=== PATIENT | male | born 1960 | race Caucasian/White ===

== ENCOUNTER 2018-02-10 06:50 | Emergency (ER) | payer OTHER ==
[~2018-02-10] VITALS: Ht 177.8 cm; Wt 100.0 kg
[~2018-02-10 06:50] MED LIST: ASPI1TAB7 PO; ATOR40TA PO; METO50TA PO; PARO25CR PO; PLAV75TA PO; SERO50TA4 PO; TRAM50TA PO
[2018-02-10 06:56] VITALS: BP 149/78; PULSE 89; RESP 24; TEMP 97.6; O2SAT 99
[2018-02-10] MEDS ORDERED: HYDR-4107 PO (07:07)
[2018-02-10] MEDS ORDERED: ASPI-516 CHEW (07:07)
[2018-02-10] MEDS ORDERED: ATOR20TA15 PO (07:07)
[2018-02-10] MEDS ORDERED: ATOR40TA16 PO (07:07)
--- NOTE | 2018-02-10 07:19 | PD ---
HPI Chief Complaint: Respiratory Symptoms Time Seen by Provider: 07:05 Travel History International Travel<30 days: No Contact w/Intl Traveler<30days: No Traveled to known affect area: No History of Present Illness HPI This patient woke up this morning and developed a constellation of symptoms. He was lightheaded and nauseous and short of breath. He became anxious and panicky. He is not sure which came first. He has history of anxiety as well as COPD and CAD. He did not have any chest pain or pressure or tightness or heaviness. Denies fever or headache or syncope. Symptom severity was moderate. He called paramedics when he became real anxious. At this point his breathing is improved. No vomiting or diarrhea. Symptoms have no alleviating factors. Symptoms have no exacerbating factors. Duration was 20 minutes. PFSH Past Medical History Arthritis: Yes Asthma: No Blood Disorders: No Heart Rhythm Problems: No Cancer: No Cardiovascular Problems: Yes High Cholesterol: Yes (takes medication) Chest Pain: Yes Congestive Heart Failure: No COPD: Yes Cerebrovascular Accident: No Diabetes: No Endocrine: No Gastrointestinal Disorders: No GERD: No Glaucoma: No Genitourinary: No Headaches: No Hepatitis: No Hiatal Hernia: No Hypertension: Yes Immune Disorder: No Implanted Vascular Access Dvce: No Kidney Stones: Yes Musculoskeletal: Yes Neurologic: No Psychiatric: No Reproductive: No Respiratory: Yes Integumentary: No Migraines: No Myocardial Infarction: Yes Renal Failure: No Seizures: No Sleep Apnea: No Thyroid Disease: No Ulcer: No Past Surgical History Abdominal Surgery: No Cardiac Surgery: No Coronary Artery Bypass Graft: Yes (3 vessel) Ear Surgery: No Endocrine Surgery: No Eye Surgery: No Genitourinary Surgery: No Gynecologic Surgery: No Neurologic Surgery: No Oral Surgery: No Pacemaker: No Thoracic Surgery: No Other Surgery: Yes (cabg x 3) Social History Alcohol Use: No Tobacco Use: Yes (/2 ppd) Substance Use: No Allergies-Medications (Allergen,Severity, Reaction): Coded Allergies: No Known Allergies (Unverified , 01/25/16) Reported Meds & Prescriptions Reported Meds & Active Scripts Active Reported Hydrocodone-Acetaminophen 5-300 Mg Tab 1 Tab PO Q6H PRN Aspirin 81 Mg Chew 81 Mg CHEW DAILY Atorvastatin (Atorvastatin Calcium) 40 Mg Tab 40 Mg PO HS Review of Systems General / Constitutional: No: Fever Eyes: No: Visual changes HENT: Positive: Lightheadedness, No: Headaches Cardiovascular: No: Chest Pain or Discomfort Respiratory: Positive: Shortness of Breath Gastrointestinal: Positive: Nausea, No: Abdominal Pain Genitourinary: No: Dysuria Musculoskeletal: No: Pain Skin: No Rash Neurologic: No: Weakness Psychiatric: Positive: Anxiety, No: Depression Endocrine: No: Polydipsia Hematologic/Lymphatic: No: Easy Bruising Physical Exam Narrative GENERAL: Well-nourished, well-developed patient in no apparent distress. SKIN: Focused skin assessment reveals no rash and nodules. Skin is Warm and dry. HEAD: Atraumatic. Normocephalic. EYES: Pupils equal and round. No scleral icterus. No injection or drainage. ENT: No nasal bleeding or discharge. Mucous membranes pink and moist. NECK: Trachea midline. No JVD. CARDIOVASCULAR: Regular rate and rhythm. No murmur appreciated. RESPIRATORY: No accessory muscle use. Clear to auscultation. Breath sounds equal bilaterally. GASTROINTESTINAL: Abdomen soft, non-tender, nondistended. Hepatic and splenic margins not palpable. MUSCULOSKELETAL: No obvious deformities. No clubbing. No cyanosis. No edema. NEUROLOGICAL: Awake and alert. No obvious cranial nerve deficits. Motor grossly within normal limits. Normal speech. PSYCHIATRIC: Anxious mood and affect; insight and judgment normal. Data Data Last Documented VS Vital Signs Date Time Temp Pulse Resp B/P (MAP) Pulse Ox O2 Delivery O2 Flow Rate FiO2 02/10/18 06:56 97.6 89 24 149/78 (101) 99 Orders Orders Electrocardiogram (02/10/18 ) Chest, Single Ap (02/10/18 ) Iv Access Insert/Monitor (02/10/18 07:14) Complete Blood Count With Diff (02/10/18 07:14) Basic Metabolic Panel (Bmp) (02/10/18 07:14) Ckmb (Isoenzyme) Profile (02/10/18 07:14) Troponin I (02/10/18 07:14) Street [employer] / Telemetry KANDIS.Q8H (02/10/18 07:14) Labs Laboratory Tests Test 02/10/18 07:16 White Blood Count 11.5 TH/MM3 Red Blood Count 4.86 MIL/MM3 Hemoglobin 14.7 GM/DL Hematocrit 44.5 % Mean Corpuscular Volume 91.5 FL Mean Corpuscular Hemoglobin 30.2 PG Mean Corpuscular Hemoglobin Concent 33.0 % Red Cell Distribution Width 13.3 % Platelet Count 282 TH/MM3 Mean Platelet Volume 8.1 FL Neutrophils (%) (Auto) 72.5 % Lymphocytes (%) (Auto) 18.5 % Monocytes (%) (Auto) 7.2 % Eosinophils (%) (Auto) 1.2 % Basophils (%) (Auto) 0.6 % Neutrophils # (Auto) 8.4 TH/MM3 Lymphocytes # (Auto) 2.1 TH/MM3 Monocytes # (Auto) 0.8 TH/MM3 Eosinophils # (Auto) 0.1 TH/MM3 Basophils # (Auto) 0.1 TH/MM3 CBC Comment DIFF FINAL Differential Comment Blood Urea Nitrogen 18 MG/DL Creatinine 1.20 MG/DL Random Glucose 158 MG/DL Calcium Level 8.6 MG/DL Sodium Level 137 MEQ/L Potassium Level 3.6 MEQ/L Chloride Level 106 MEQ/L Carbon Dioxide Level 23.4 MEQ/L Anion Gap 8 MEQ/L Estimat Glomerular Filtration Rate 62 ML/MIN Total Creatine Kinase 84 U/L Troponin I LESS THAN 0.02 NG/ML MDM Medical Decision Making Medical Screen Exam Complete: Yes Emergency Medical Condition: Yes Medical Record Reviewed: Yes Differential Diagnosis COPD exacerbation, anxiety, angina Narrative Course I have reviewed the patient's electronic medical record. Patient was here in 2016 last. Has history of bypass grafting surgery Patient's vital signs at this time are normal. May have been anxiety attack or COPD. Less likely seems ACS. He did not have any chest pain. I have ordered lab studies as well as chest x-ray and EKG to evaluate He notes that he is significantly much better than when he woke up. Extended cardiac monitoring shows sinus rhythm without ectopy CBC and metabolic studies are normal Cardiac enzymes are normal Chest x-ray is clear EKG shows no ST elevation, sinus rhythm On recheck he is feeling better and doing well. Vitals are normal. I think he had an anxiety attack but it has resolved. No evidence of ACS Diagnosis Primary Impression: Anxiety attack Additional Impressions: Shortness of breath Coronary artery disease Qualified Codes: I25.799 - Atherosclerosis of other coronary artery bypass graft(s) with unspecified angina pectoris Additional Instructions: The patient was advised to follow up with their physician and return if they worsen. Med/Other Pt SpecificInfo: Other Disposition: DISCHARGE HOME Condition: Stable Robert Fontaine MD Feb 10, 2018 07:19
[2018-02-10 07:25] LABS: AUTOMATED NEUTROPHIL # 8.4 TH/MM3 (1.8-7.7); BASOPHIL # 0.1 TH/MM3 (0-0.2); BASOPHIL % 0.6 % (0.0-2.0); EOSINOPHIL # 0.1 TH/MM3 (0-0.4); EOSINOPHIL % 1.2 % (0.0-4.0); HEMATOCRIT 44.5 % (39.0-51.0); HEMOGLOBIN 14.7 GM/DL (13.0-17.0); LYMPH % 18.5 % (9.0-44.0); LYMPHOCYTE # 2.1 TH/MM3 (1.0-4.8); MEAN CELL VOLUME 91.5 FL (80.0-100.0); MEAN CORPUSCULAR HEMOGLOBIN 30.2 PG (27.0-34.0); MEAN PLATELET VOLUME 8.1 FL (7.0-11.0); MONO % 7.2 % (0.0-8.0); MONOCYTE # 0.8 TH/MM3 (0-0.9); NEUT % 72.5 % (16.0-70.0); PLATELET COUNT 282 TH/MM3 (150-450); RED BLOOD COUNT 4.86 MIL/MM3 (4.50-5.90); RED CELL DISTRIBUTION WIDTH 13.3 % (11.6-17.2); WHITE BLOOD COUNT 11.5 TH/MM3 (4.0-11.0)
--- NOTE | 2018-02-10 07:27 | RADRPT ---
EXAM DATE/TIME: 02/10/2018 07:12 [facility] COMPARISON: CHEST SINGLE AP, January 25, 2016, 18:16. INDICATIONS : Short of breath MEDICAL HISTORY : Hypertension. Myocardial infarction. Chronic obstructive pulmonary disease, CAD. SURGICAL HISTORY : CABG. ENCOUNTER: Initial ACUITY: 1 day PAIN SCORE: 0/10 LOCATION: Bilateral chest FINDINGS: A single view of the chest demonstrates the lungs to be symmetrically aerated without evidence of mas s, infiltrate or effusion. The cardiomediastinal contours are unremarkable. Osseous structures are intact. CONCLUSION: No acute disease. Erickson Arroyo MD FACR on February 10, 2018 at 7:25 Board Certified Radiologist. This report was verified electronically.
[2018-02-10 07:32] LABS: CHLORIDE 106 MEQ/L (98-107); SODIUM (NA) 137 MEQ/L (136-145)
[2018-02-10 07:35] LABS: BICARBONATE 23.4 MEQ/L (21.0-32.0); CALCIUM 8.6 MG/DL (8.5-10.1); GLUCOSE,RANDOM 158 MG/DL (74-106)
[2018-02-10 07:36] LABS: BLOOD UREA NITROGEN 18 MG/DL (7-18)
[2018-02-10 07:39] LABS: GLOMERULAR FILTRATION RATE 62 ML/MIN (>89)
[2018-02-10 07:43] LABS: TROPONIN I LESS THAN 0.02 NG/ML (0.02-0.05)
[2018-02-10 08:33] VITALS: BP 133/70
--- NOTE | 2018-02-10 16:47 | EKG ---
Date Performed: 02/10/2018 Time Performed: 07:18:59 PTAGE: 57 years EKG: Sinus rhythm LEFT ANTERIOR FASCICULAR BLOCK Since the previous tracing, no significant change noted ABNORMAL ECG PREVIOUS TRACING : 01/26/2016 06.11 DOCTOR: Beulah Tyson Interpretating Date/Time 02/10/2018 16:46:23
== END 2018-02-10 08:34 | disposition home or self-care (01) ==
LOC: PHED 06:50
DX: F41.1 Generalized anxiety disorder (principal); I25.799 Atherosclerosis of other coronary artery bypass graft(s) with unspecified angina pectoris; R94.31 Abnormal electrocardiogram [ECG] [EKG]; R42 Dizziness and giddiness; R11.0 Nausea; J44.9 Chronic obstructive pulmonary disease, unspecified; E78.00 Pure hypercholesterolemia, unspecified; I10 Essential (primary) hypertension; Z87.442 Personal history of urinary calculi; I25.2 Old myocardial infarction; F17.210 Nicotine dependence, cigarettes, uncomplicated
CPT/HCPCS: 71045; 80048; 82550; 84484; 85025; 93005; 99285